=== PATIENT | female | born 1990 | race African-American/Black ===

== ENCOUNTER 2016-12-07 21:47 | Emergency (ER) | payer OTHER ==
[~2016-12-07] VITALS: Ht 170.2 cm; Wt 79.8 kg
[2016-12-07 22:26] VITALS: BP 120/88
[2016-12-07] MEDS ORDERED: IBUPROFEN 800 MG TABLET. PO ONE (23:00)
--- NOTE | 2016-12-07 23:10 | ED.ADGEN ---
Past Medical History Past Medical History: No Pertinent History Past Surgical History: Other Additional Past Surgical Histo: SOME TYPE OF I & D ON NECK A CHILD Alcohol Use: None Drug Use: None Adult General Chief Complaint Chief Complaint: MULTIPLE COMPLAINTS HPI HPI Patient is a 25 year old woman, status post an at 19 weeks on 12/02, 5 days prior to arrival in the ED, who presents to the department complaining of swelling and firmness and soreness in both breasts, with drainage, and pain in the right calf. Patient states that she spoke to [facility] were her procedures performed earlier today, told her to come to the ED for additional evaluation. She she did take Tylenol at home without relief for her pain. She denies any fevers or chills, any abdominal pain, any bleeding, discharge or drainage. Denies any urinary complaints, any weakness, numbness, tingling, chest pain, shortness of breath. She states that this is not her first , and she is aware of the fact that her breast firmness is due to hormonal changes, states she was told to get checked out for mastitis. She states the pain in her right lower extremity began today, with increasing soreness and swelling, denies any injuries. States family history of DVT and an uncle of an unknown cause. No recent travel, no other procedures aside from the DNA as stated. Review of Systems Review of Systems Constitutional: Denies fever or chills. [] Eyes: Denies change in visual acuity. [] HENT: Denies nasal congestion or sore throat. [] Respiratory: Denies cough or shortness of breath. [] Cardiovascular: Denies chest pain or edema. [] Patient with swelling, firmness , and drainage from bilateral breasts. GI: Denies vomiting, bloody stools or diarrhea. No nausea or abdominal pain. : Denies dysuria. [] Musculoskeletal: Denies back pain or joint pain. Pain and swelling in the right calf. No injury. Integument: Denies rash. [] Neurologic: Denies headache, focal weakness or sensory changes. [] Endocrine: Denies polyuria or polydipsia. [] Lymphatic: Denies swollen glands. [] Psychiatric: Denies depression or anxiety. [] Current Medications Current Medications Current Medications Medications (Trade) Dose Ordered Sig/Arnaud Start Time Stop Time Status Last Admin Dose Admin Ibuprofen (Motrin) 800 mg 1X ONCE 12/07/16 23:00 12/07/16 23:01 DC 12/07/16 23:05 800 MG Allergies Allergies Allergies Coded Allergies Type Severity Reaction Last Updated Verified No Known Drug Allergies 10/06/13 No Physical Exam Physical Exam Constitutional: Well developed, well nourished, no acute distress, non-toxic appearance. [] HENT: Normocephalic, atraumatic, bilateral external ears normal, oropharynx moist, no oral exudates, nose normal. [] Eyes: PERRLA, EOMI, conjunctiva normal, no discharge. [] Neck: Normal range of motion, no tenderness, supple, no stridor. [] Cardiovascular:Heart rate regular rhythm, no murmur , S1, S2, no rubs or gallops. [] Lungs & Thorax: Bilateral breath sounds clear to auscultation, no wheezing, rhonchi, rales. No chest wall crepitus. Patient with swelling of the breast bilaterally, with some firmness, noted have claustrum easily expressed from both nipples, there is no evidence of erythema, abscess formation or induration. Our consistent with breast examination. No adnexal tenderness, no lymphadenopathy. Abdomen: Bowel sounds normal, soft, no rebound, rigidity, no guarding, no masses , no pulsatile masses. [] Skin: Warm, dry, no erythema, no rash. [] Back: No tenderness, no CVA tenderness. [] Extremities: No tenderness, no cyanosis, no clubbing, ROM intact, no edema. Patient with tenderness palpation in the right calf, no induration, erythema, evidence of trauma or other abnormalities identified. Neurologic: Alert and oriented X 3, normal motor function, normal sensory function, no focal deficits noted. [] Psychologic: Affect normal, judgement normal, mood normal. [] Current Patient Data Vital Signs Vital Signs Date Time Temp Pulse Resp B/P (MAP) Pulse Ox O2 Delivery O2 Flow Rate FiO2 12/07/16 22:26 98.5 70 18 120/88 (99) 100 Room Air 98.5 Lab Values Laboratory Tests Test 12/07/16 21:31 POC Urine HCG, Qualitative Hcg positive (Negative) EKG EKG Not indicated. Radiology/Procedures Radiology/Procedures [][facility] [address] [place] [address] IMAGING REPORT Signed PATIENT: ROVERTO NELSON ACCOUNT: [id number] : 1990 LOCATION: ER AGE: 25 SEX: F EXAM STATUS: REG ER ORD. PHYSICIAN: NELLY YAÑEZ DO REASON: Pain/swelling, r/o DVT PROCEDURE: VENOUS LOWER EXTREMITY RIGHT Right Lower Extremity Venous Doppler Ultrasound History: pain Comparison: None Procedure: Color flow, duplex, spectral analysis and 2D images are obtained with and without compression in the area of the common femoral vein, superficial femoral vein - femoral vein junction, main femoral vein (superficial femoral vein) and popliteal vein. Veins of the proximal calf are also imaged. Findings: There is normal duplex flow, color flow and compressibility of all visualized vein segments. No evidence of deep venous thrombus is present. Impression: No evidence of DVT. Electronically signed by: Wendy Olvera III, MD (12/07/2016 11:54 PM) [facility] DICTATED and SIGNED BY: WENDY OLVERA III, MD DATE: 12/07/16 1073 CC: NELLY YAÑEZ DO; NO PCP ~ Course & Med Decision Making Course & Med Decision Making Pertinent Labs and Imaging studies reviewed. (See chart for details) Patient's breast examination is consistent with state, with clostrum. No evidence of mastitis or other concerning findings. I discussed this with patient, again she is aware of these most part of findings, and knows that it will take several weeks at least before her breasts or so normalize, up to 68 weeks in total. Discuss use of ice packs, and pumping. Also discussed concerning symptoms that prompt return, and follow-up with her [employer]. Ultrasound of the right lower extremity does not reveal evidence of DVT. Discussed excised patient, she is resting more comfortably at this time, discussed use [id number] medications, hydration, and again concerning symptoms that prompt return and importance of follow-up. Patient voiced understanding and agreement, discharged home in stable condition with plan as above. Dragon Disclaimer Dragon Disclaimer This electronic medical record was generated, in whole or in part, using a voice recognition dictation system. Departure Impression: Primary Impression: Breast pain in female Disposition: 01 HOME, SELF-CARE Condition: IMPROVED NELLY YAÑEZ DO Dec 07, 2016 23:10
--- NOTE | 2016-12-07 23:57 | RAD ---
Right Lower Extremity Venous Doppler Ultrasound History: pain Comparison: None Procedure: Color flow, duplex, spectral analysis and 2D images are obtained with and without compression in the area of the common femoral vein, superficial femoral vein - femoral vein junction, main femoral vein (superficial femoral vein) and popliteal vein. Veins of the proximal calf are also imaged. Findings: There is normal duplex flow, color flow and compressibility of all visualized vein segments. No evidence of deep venous thrombus is present. Impression: No evidence of DVT. Electronically signed by: Maikel Elder III, MD (12/07/2016 11:54 PM) [facility]
== END 2016-12-08 01:02 | disposition home or self-care (01) ==
LOC: ER 21:47
DX: N64.4 Mastodynia (principal); M79.661 Pain in right lower leg
CPT/HCPCS: 81025; 93971; 99284-25